=== PATIENT | female | born 2005 | race Caucasian/White ===

== ENCOUNTER 2024-07-15 16:06 | Outpatient (CLI) | payer MEDICAID, SELFPAY | END 2024-07-15 16:07 | disposition home or self-care (01) | LOC: NFLDREF 07-20 02:49 | PROVIDERS: Visit Provider Nurse Practitioner | DX: N30.01 Acute cystitis with hematuria (principal); B96.20 Unspecified Escherichia coli [E. coli] as the cause of diseases classified elsewhere | CPT/HCPCS: 87086 ==

== ENCOUNTER 2025-01-16 11:51 | Outpatient (CLI) | payer MEDICAID, SELFPAY | END 2025-01-16 11:52 | disposition home or self-care (01) | LOC: NFLDREF 01-20 12:21 | PROVIDERS: Visit Provider Physician Assistant | DX: N30.00 Acute cystitis without hematuria (principal); B95.1 Streptococcus, group B, as the cause of diseases classified elsewhere | CPT/HCPCS: 87086; 87186 ==